=== PATIENT | female | born 1960 | race Two or more races ===

== ENCOUNTER 2017-08-16 10:33 | Emergency (ER) | payer BC ==
[2017-08-16 10:41] VITALS: RESP 18
--- NOTE | 2017-08-16 10:47 | EDPHY ---
H & P Time Seen by Provider: 08/16/17 10:44 HPI/ROS: Chief complaint. High pulse and high blood pressure HPI. 57-year-old female presents emergency department with elevated blood pressure and palpitations. She was diagnosed on Sunday 4 days ago with bronchitis. Treated with Ventolin inhaler and Zithromax. She has noticed palpitations. Heart rate has been up to 112 beats per minute. She took an extra Toprol which controlled her symptoms. She has had some nausea and diarrhea. She also has shortness of breath and pain in her chest with cough. No fever. Decreased energy. Decreased oral intake. She is also concerned that she has oral thrush ROS Constitutional. no fever/chills, no weakness Eyes. no problems with vision ENT. Congestion Cardiovascular. Chest pain with cough Respiratory. Shortness of breath and cough Abdominal. Nausea and diarrhea . no problems urinating MS. no calf pain/swelling, no neck/back pain, no joint pain Skin. no rash Lymph. no swollen glands Neuro. no headache, no dizziness, no difficulty walking or with speech Past Medical/Surgical History: Hypertension, fibromyalgia Social History: Single, nonsmoker, no alcohol. Visiting from [place] Smoking Status: Never smoked Physical Exam: General Appearance: Alert well-developed female mild distress vital signs show temp 37.3degrees initial blood pressure 92/65 and O2 saturation 92% on room air Eyes: Pupils equal and round no pallor or injection. ENT, pharynx slightly injected without exudate. Mucous membranes are moist. Thrush appearance on her tongue Respiratory: No retractions. Mild inspiratory expiratory rhonchi Cardiovascular: Regular rate and rhythm. Gastrointestinal: Abdomen is soft and nontender, no masses, bowel sounds normal. Neurological: Awake and alert, sensory and motor exams grossly normal. Skin: Warm and dry, no rashes. Musculoskeletal: Neck is supple nontender. Extremities symmetrical, full range of motion. Psychiatric: Patient is oriented X 3, there is no agitation. Constitutional: Initial Vital Signs Temperature (C) 37.3 C 08/16/17 10:37 Heart Rate 94 08/16/17 10:37 Respiratory Rate 18 08/16/17 10:37 Blood Pressure 92/65 L 08/16/17 10:37 O2 Sat (%) 92 08/16/17 10:37 O2 Delivery Mode Room Air Allergies/Adverse Reactions: No Known Allergies Allergy (Unverified 08/16/17 10:35) Home Medications: Medication Instructions Recorded AZITHROMYCIN 08/16/17 CLONAZEPAM 08/16/17 FENOFIBRATE 08/16/17 Fluconazole [Diflucan (*)] 150 mg PO ONCE #2 tab 08/16/17 Losartan Potassium 08/16/17 Metoprolol Succinate Xr [Toprol Xl 100 mg PO DAILY #20 tab.sr 08/16/17 100 mg (*)] Mucinex 08/16/17 Toprol Xl 100 mg (*) 08/16/17 Ventolin Hfa 08/16/17 Zoloft 50mg (*) 08/16/17 Medical Decision Making - Diagnostics EKG Interpretation: EKG interpreted by me shows normal sinus rhythm with normal interval and axis. QRS is normal there is no significant ST elevation or depression. There is no arrhythmia. The rate is 94 Imaging Results: Imaging Impressions Chest X-Ray 08/16/17 11:25 Impression: No acute findings in the chest. Chest x-ray interpreted by me is normal Procedures: IV normal saline, monitor ED Course/Re-evaluation: Re-evaluation 1:20 p.m.. Patient and I have discussed imaging, EKG, lab results. We discussed treatment plan including criteria for return importance of follow-up further evaluation. She expresses understanding and agreement Differential Diagnosis: I think the patient clinically has bronchitis. There is no evidence of pneumonia or sepsis. I suspect her antibiotics are making the patient worse. She is visiting from [place] and I think some of her symptoms are due to altitude in cold air. - Data Points Laboratory Results: Laboratory Results 08/16/17 11:10 08/16/17 11:10 08/16/17 08/16/17 08/16/17 11:10 11:10 11:10 WBC 6.18 10^3/uL 10^3/uL (3.80-9.50) RBC 4.85 10^6/uL 10^6/uL (4.18-5.33) Hgb 13.7 g/dL g/dL (12.6-16.3) Hct 40.7 % % (38.0-47.0) MCV 83.9 fL fL (81.5-99.8) MCH 28.2 pg pg (27.9-34.1) MCHC 33.7 g/dL g/dL (32.4-36.7) RDW 13.6 % % (11.5-15.2) Plt Count 231 10^3/uL 10^3/uL (150-400) MPV 9.5 fL fL (8.7-11.7) Neut % (Auto) 60.6 % % (39.3-74.2) Lymph % (Auto) 28.0 % % (15.0-45.0) Irion % (Auto) 10.4 % % (4.5-13.0) Eos % (Auto) 0.5 % L % (0.6-7.6) Baso % (Auto) 0.3 % % (0.3-1.7) Nucleat RBC Rel Count 0.0 % % (0.0-0.2) Absolute Neuts (auto) 3.75 10^3/uL 10^3/uL (1.70-6.50) Absolute Lymphs (auto) 1.73 10^3/uL 10^3/uL (1.00-3.00) Absolute Monos (auto) 0.64 10^3/uL 10^3/uL (0.30-0.80) Absolute Eos (auto) 0.03 10^3/uL 10^3/uL (0.03-0.40) Absolute Basos (auto) 0.02 10^3/uL 10^3/uL (0.02-0.10) Absolute Nucleated RBC 0.00 10^3/uL 10^3/uL (0-0.01) Immature Gran % 0.2 % % (0.0-1.1) Immature Gran # 0.01 10^3/uL 10^3/uL (0.00-0.10) D-Dimer 0.46 ug/mLFEU ug/mLFEU (0.00-0.50) Sodium 141 mEq/L mEq/L (135-145) Potassium 5.1 mEq/L mEq/L (3.5-5.2) Chloride 104 mEq/L mEq/L (97-110) Carbon Dioxide 24 mEq/l mEq/l (22-31) Anion Gap 13 mEq/L mEq/L (8-16) BUN 16 mg/dL mg/dL (7-23) Creatinine 0.7 mg/dL mg/dL (0.6-1.0) Estimated GFR > 60 Glucose 97 mg/dL mg/dL (70-100) Calcium 9.9 mg/dL mg/dL (8.5-10.4) Troponin I < 0.012 ng/mL ng/mL (0.000-0.034) Medications Given: Discontinued Medications Sodium Chloride (Ns) 1,000 mls @ 0 mls/hr IV EDNOW ONE; Wide Open PRN Reason: Protocol Stop: 08/16/17 11:26 Last Admin: 08/16/17 11:27 Dose: 1,000 mls Sodium Chloride (Ns) 1,000 mls @ 0 mls/hr IV EDNOW ONE; Wide Open PRN Reason: Protocol Stop: 08/16/17 11: Last Admin: 08/16/17 11:36 Dose: 1,000 mls Ondansetron HCl (Zofran) 4 mg IVP EDNOW ONE Stop: 08/16/17 11:26 Last Admin: 08/16/17 11:36 Dose: 4 mg Departure - Departure Disposition: Home, Routine, Self-Care Clinical Impression: Acute bronchitis Qualifiers: Bronchitis organism: unspecified organism Qualified Code(s): J20.9 - Acute bronchitis, unspecified Condition: Good Instructions: Acute Bronchitis (ED) Additional Instructions: Drink plenty of fluids and stay hydrated. Humidifier or vaporizer. Discontinue the Zithromax antibiotic. You may use the inhaler 2 puffs every 4- 6 hours to help with breathing. Return for worsening symptoms. Recheck in 2-3 days if not improving Referrals: NONE *PRIMARY CARE P,. [Primary Care Provider] - As per Instructions Kanwal Schilling MD [Medical Doctor] - As per Instructions Prescriptions: Fluconazole [Diflucan (*)] 150 mg PO ONCE #2 tab Metoprolol Succinate Xr [Toprol Xl 100 mg (*)] 100 mg PO DAILY #20 tab.sr
[2017-08-16] MEDS ORDERED: NS 1,000 ML IV ONE ×2 (11:25)
[2017-08-16] MEDS ORDERED: ONDANSETRON 4 MG/2 ML VIAL IVP ONE (11:25)
--- NOTE | 2017-08-16 11:29 | CPEKG ---
Heart Rate: 94 RR Interval: 638 P-R Interval: 144 QRSD Interval: 74 QT Interval: 340 QTC Interval: 426 P Morrow: 51 QRS Morrow: 45 T Wave Morrow: 20 EKG Severity - NORMAL ECG - EKG Impression: SINUS RHYTHM Electronically Signed By: Gilmar Palacios 16-Aug-2017 15:56:49
[2017-08-16 11:30] LABS: PLATELET COUNT 231 10^3/uL (150-400)
[2017-08-16 13:48] VITALS: BP 115/73; PULSE 92; TEMP 100.1; O2SAT 97
== END 2017-08-16 13:48 | disposition home or self-care (01) ==
DX: J20.9 Acute bronchitis, unspecified (principal); I10 Essential (primary) hypertension; E86.9 Volume depletion, unspecified
CPT/HCPCS: 96374; J2405